=== PATIENT | female | born 1955 | race American Indian/Alaskan Native ===

== ENCOUNTER 2020-07-16 21:24 | Emergency (ER) | payer BC, OTHER ==
[2020-07-16] MEDS ORDERED: ASPIRIN 325 MG TAB PO ONE (21:33)
[2020-07-16 21:42] VITALS: BP 170/92
[2020-07-16 22:01] LABS: Basophils % (Auto) 0.2 % (0.0-1.8); Eosinophils # (Auto) 0.2 K/mm3 (0.0-0.4); Eosinophils % (Auto) 2.5 % (0.0-4.3); Hematocrit 39.6 % (30.3-42.9); Hemoglobin 13.1 gm/dl (10.1-14.3); Lymphocytes # (Auto) 2.2 K/mm3 (1.2-5.4); Lymphocytes % (Auto) 29.6 % (13.4-35.0); Mean Corpuscular HGB Conc 33 % (30-34); Mean Corpuscular Volume 95 fl (79-97); Monocytes # (Auto) 0.8 K/mm3 (0.0-0.8); Platelet Count 176 K/mm3 (140-440); Red Blood Count 4.18 M/mm3 (3.65-5.03); Red Cell Distribution Width 14.2 % (13.2-15.2)
[2020-07-16 22:11] LABS: BUN/Creatinine Ratio 23; Blood Urea Nitrogen 25 mg/dL (7-17); Calcium 9.3 mg/dL (8.4-10.2); Hemolysis Index 17
--- NOTE | 2020-07-16 22:17 | XRay Report ---
CHEST 2 VIEWS INDICATION / CLINICAL INFORMATION: Chest Pain. COMPARISON: 12/29/2017. FINDINGS: SUPPORT DEVICES: None. HEART / MEDIASTINUM: No significant abnormality. LUNGS / PLEURA: No significant pulmonary or pleural abnormality. No pneumothorax. ADDITIONAL FINDINGS: No significant additional findings. IMPRESSION: No acute cardiopulmonary abnormality. Signer Name: Adams Goldsmith MD Signed: 07/16/2020 10:12 PM Workstation Name: [id number]
--- NOTE | 2020-07-18 16:34 | Cat Scan Report ---
CTA CHEST WITH CONTRAST INDICATION / CLINICAL INFORMATION: P.E. PROTOCOL!!! Patient complains of chest pain since this evenin g.. TECHNIQUE: Axial CT images were obtained through the chest after injection of IV contrast. 3 plane ID P and/or 3D reconstructions were produced. All CT scans at this location are performed using CT dose reduction for ALARA by means of automated exposure control. COMPARISON: None available. FINDINGS: PULMONARY ARTERIES: No pulmonary emboli. THORACIC AORTA: No significant abnormality. HEART: Mildly enlarged but no acute abnormality. CORONARY ARTERY CALCIFICATION: Mild. MEDIASTINUM / ELIZABETH: No significant abnormality. PLEURA: No pleural effusion. No pneumothorax. LUNGS: No acute air space or interstitial disease. ADDITIONAL FINDINGS: None. UPPER ABDOMEN: No acute findings. SKELETAL STRUCTURES: No significant osseous abnormality. IMPRESSION: 1. No CT evidence for pulmonary embolism. 2. No acute findings. 3. Mild cardiomegaly. Signer Name: Zoya Castorena MD Signed: 07/17/2020 2:54 AM Workstation Name: [id number]
--- NOTE | 2020-07-19 08:01 | Emergency Department Report ---
ED Chest Pain HPI - General Chief Complaint: Chest Pain Stated Complaint: CHEST PAIN Source: patient Mode of arrival: Ambulatory Limitations: No Limitations - History of Present Illness Initial Comments: This visit occurred during [facility] downtime. Currently dictating electronic medical record from my written notes from visit that occurred on 07/17/2020 70-year-old female, history of hypertension, asthma, hypercholesterolemia, presents with complaint of chest pain. States pain is midsternal, sharp, nonradiating. Onset after cleaning out garage. States pain is intermittent, lasting 10 seconds at a time. She denies shortness of breath, fever, cough, nausea, diaphoresis. Denies any history of CAD or CHF. Ice Cream Vendor: Dr Lisa DURON Complaint: chest pain -: Last night Onset: other (After cleaning a garage) Pain Location: substernal Pain Radiation: none Severity: mild Severity scale (0 -10): 0 Quality: sharp Consistency: intermittent Improves With: nothing Worsens With: nothing re: denies: nausea, vomting, diaphoresis, dyspnea Other Symptoms: denies: cough, fever, leg swelling - Related Data Home Medications Medication Instructions Recorded Confirmed Last Taken Aspirin [Aspirin BABY CHEW TAB] 81 mg PO QDAY 08/04/13 12/30/17 2 Days Ago ~12/28/17 Pantoprazole [Protonix TAB] 40 mg PO BID 08/04/13 12/30/17 2 Days Ago ~12/28/17 Valsartan [Diovan] 40 mg PO BID 08/04/13 12/30/17 2 Days Ago ~12/28/17 Previous Rx's Medication Instructions Recorded Last Taken Type Pantoprazole [Protonix] 40 mg PO BID #60 tablet 12/31/17 Unknown Rx Allergies Allergy/AdvReac Type Severity Reaction Status Date / Time No Known Allergies Allergy Verified 09/05/13 15:31 Heart Score - HEART Score History: Slightly suspicious EKG: Normal Age: 45-65 Risk factors: 1-2 risk factors Troponin: < normal limit HEART Score: 2 ED Review of Systems ROS: Stated complaint: CHEST PAIN Other details as noted in HPI Comment: All other systems reviewed and negative Constitutional: denies: fever Respiratory: denies: shortness of breath Cardiovascular: chest pain, palpitations Gastrointestinal: denies: nausea, vomiting Musculoskeletal: other (Patient reports episode of sharp right leg pain that is currently resolved; denies leg swelling) ED Past Medical Hx - Past Medical History Hx Hypertension: Yes Hx Congestive Heart Failure: No Hx Diabetes: No Hx GERD: Yes Hx Arthritis: Yes Hx Headaches / Migraines: Yes (MIGRAINES) Hx Kidney Stones: Yes Hx Asthma: No Hx COPD: No Additional medical history: reflux - Surgical History Additional Surgical History: Hernia repair, hysterectomy 1999 - Social History Smoking Status: Never Smoker Substance Use Type: None - Medications Home Medications: Home Medications Medication Instructions Recorded Confirmed Last Taken Type Aspirin [Aspirin BABY CHEW TAB] 81 mg PO QDAY 08/04/13 12/30/17 2 Days Ago History ~12/28/17 Pantoprazole [Protonix TAB] 40 mg PO BID 08/04/13 12/30/17 2 Days Ago History ~12/28/17 Valsartan [Diovan] 40 mg PO BID 08/04/13 12/30/17 2 Days Ago History ~12/28/17 Pantoprazole [Protonix] 40 mg PO BID #60 tablet 12/31/17 Unknown Rx ED Physical Exam - General Limitations: No Limitations General appearance: alert, in no apparent distress - Head Head exam: Present: atraumatic, normocephalic - Eye Eye exam: Present: normal appearance, EOMI - ENT ENT exam: Present: mucous membranes moist - Neck Neck exam: Present: normal inspection - Respiratory Respiratory exam: Present: normal lung sounds bilaterally. Absent: respiratory distress - Cardiovascular Cardiovascular Exam: Present: regular rate, normal rhythm - GI/Abdominal GI/Abdominal exam: Present: soft. Absent: distended, tenderness - Extremities Exam Extremities exam: Present: normal inspection. Absent: pedal edema, calf tenderness - Neurological Exam Neurological exam: Present: alert, oriented X3 - Psychiatric Psychiatric exam: Present: normal affect, normal mood - Skin Skin exam: Present: warm, dry, intact, normal color ED Course Vital Signs 07/16/20 21:41 Temperature 98.1 F Pulse Rate 62 Respiratory 20 Rate Blood Pressure 170/92 O2 Sat by Pulse 98 Oximetry ED Medical Decision Making - Lab Data Result diagrams: 07/16/20 21:35 07/16/20 21:35 - EKG Data -: EKG Interpreted by Mt EKG shows normal: sinus rhythm, axis, intervals, QRS complexes, ST-T waves Rate: normal - EKG Data Interpretation: no acute changes - Radiology Data Radiology results: report reviewed, image reviewed - Medical Decision Making 65-year-old female with sharp, intermittent chest pain. EKG unremarkable. Troponin negative x2. CTA obtained secondary to elevated D-dimer. CTA is negat charla. - Differential Diagnosis ACS, PE Critical care attestation.: If time is entered above; I have spent that time in minutes in the direct care of this critically ill patient, excluding procedure time. ED Disposition Clinical Impression: Chest pain Disposition: DC-01 TO HOME OR SELFCARE Is pt being admited?: No Condition: Stable Instructions: Chest Pain (ED) Referrals: NATALI SOTO JR, MD [Primary Care Provider] - 3-5 Days
== END 2020-07-17 03:50 | disposition home or self-care (01) ==
LOC: ED 21:24
DX: R07.89 Other chest pain (principal); I10 Essential (primary) hypertension; G43.909 Migraine, unspecified, not intractable, without status migrainosus; Z90.710 Acquired absence of both cervix and uterus; Z79.899 Other long term (current) drug therapy; Z98.890 Other specified postprocedural states
CPT/HCPCS: 36415; 71046; 71275; 80048; 84484; 85025; 93005; 99284; Q9967

== ENCOUNTER 2020-09-04 10:21 | Outpatient (CLI) | payer OTHER ==
--- NOTE | 2020-09-04 12:11 | Ultrasound Report ---
US abdomen complete INDICATION: EPIGASTRIC PAIN/ FUNCTIONAL DYSPEPSIA COMPARISON: None. FINDINGS: Pancreas: No significant abnormality.. Abdominal aorta: Normal. IVC: Normal. Liver: No significant abnormality. Gallbladder: No significant abnormality. Bile ducts: Normal. The common bile duct measures 4 mm. Kidneys: Normal. Spleen: Normal. There is no free fluid in the abdomen. IMPRESSION: No significant sonographic abnormality of the abdomen. Signer Name: Antony Campbell MD Signed: 09/04/2020 12:06 PM Workstation Name: [id number]
== END 2020-09-04 10:22 | disposition home or self-care (01) ==
LOC: SPVWC 10:21
PROVIDERS: ATTEND Internal Medicine Gastroenterology
DX: K30 Functional dyspepsia (principal)
CPT/HCPCS: 76700

== ENCOUNTER 2021-08-03 10:32 | Emergency (ER) | payer MEDICARE, OTHER ==
[2021-08-03 10:38] VITALS: BP 148/92
--- NOTE | 2021-08-03 11:16 | Emergency Department Report ---
ED Abdominal Pain HPI - General Chief Complaint: Abdominal Pain Stated Complaint: RT SIDE PAIN IN LOWER ABDOMIN Time Seen by Provider: 08/03/21 11:01 Source: patient Mode of arrival: Ambulatory Limitations: No Limitations - History of Present Illness Initial Comments: Patient presents with a couple of day history of intermittent sharp and stabbing right pelvic pain. She states that the pain hits her and last anywhere from seconds to 10 minutes or so. It hit her twice today. The last time this occurred was while she was shopping at [employer]. She came here to be evaluated. Pain has since subsided. Again, this is a sharp and stabbing pain. It occurs in the right pelvic area. It seems to stay in that location. It does not radiate or migrate. He has no back pain associated with this. When it hits, she states that it almost doubles her over. Today, she put pressure in that area with her hand and that alleviated her symptoms somewhat. By the time she arrived here, the pain had resolved. She is never had pain like this before otherwise. There is no recent travel or trauma. She has no cough or congestion. There is no vomiting or diarrhea. She has no dysuria or frequency. - Related Data Home Medications Medication Instructions Recorded Confirmed Last Taken Aspirin [Aspirin BABY CHEW TAB] 81 mg PO QDAY 08/04/13 12/30/17 2 Days Ago ~12/28/17 Pantoprazole [Protonix TAB] 40 mg PO BID 08/04/13 12/30/17 2 Days Ago ~12/28/17 Valsartan [Diovan] 40 mg PO BID 08/04/13 12/30/17 2 Days Ago ~12/28/17 Previous Rx's Medication Instructions Recorded Last Taken Type Pantoprazole [Protonix] 40 mg PO BID #60 tablet 12/31/17 Unknown Rx Dicyclomine [Bentyl] 20 mg PO QID PRN #20 tablet 08/03/21 Unknown Rx Allergies Allergy/AdvReac Type Severity Reaction Status Date / Time No Known Allergies Allergy Verified 09/05/13 15:31 ED Review of Systems ROS: Stated complaint: RT SIDE PAIN IN LOWER ABDOMIN Other details as noted in HPI Comment: All other systems reviewed and negative Constitutional: denies: fever Eyes: denies: eye pain ENT: denies: throat pain Respiratory: denies: cough Cardiovascular: denies: chest pain Endocrine: denies: unexplained weight loss Gastrointestinal: as per HPI Genitourinary: denies: dysuria Musculoskeletal: denies: back pain Skin: denies: rash Neurological: denies: headache Hematological/Lymphatic: denies: easy bruising ED Past Medical Hx - Past Medical History Previous Medical History?: Yes Hx Hypertension: Yes Hx Congestive Heart Failure: No Hx Diabetes: No Hx GERD: Yes Hx Renal Disease: Yes ( Kidney stones) Hx Arthritis: Yes Hx Headaches / Migraines: Yes (MIGRAINES) Hx Kidney Stones: Yes Hx Asthma: No Hx COPD: No Additional medical history: reflux - Surgical History Additional Surgical History: Hernia repair, hysterectomy 1999 - Family History Family history: hypertension - Social History Smoking Status: Never Smoker Substance Use Type: None - Medications Home Medications: Home Medications Medication Instructions Recorded Confirmed Last Taken Type Aspirin [Aspirin BABY CHEW TAB] 81 mg PO QDAY 08/04/13 12/30/17 2 Days Ago History ~12/28/17 Pantoprazole [Protonix TAB] 40 mg PO BID 08/04/13 12/30/17 2 Days Ago History ~12/28/17 Valsartan [Diovan] 40 mg PO BID 08/04/13 12/30/17 2 Days Ago History ~12/28/17 Pantoprazole [Protonix] 40 mg PO BID #60 tablet 12/31/17 Unknown Rx Dicyclomine [Bentyl] 20 mg PO QID PRN #20 tablet 08/03/21 Unknown Rx ED Physical Exam - General Limitations: No Limitations, Other ( pulse ox noted and normal) General appearance: alert, in no apparent distress - Head Head exam: Present: atraumatic, normocephalic - Eye Eye exam: Present: normal appearance, EOMI. Absent: scleral icterus - ENT ENT exam: Present: normal exam, normal orophraynx, normal external ear exam - Neck Neck exam: Present: normal inspection. Absent: meningismus - Respiratory Respiratory exam: Present: normal lung sounds bilaterally. Absent: respiratory distress - Cardiovascular Cardiovascular Exam: Present: regular rate, normal rhythm - GI/Abdominal GI/Abdominal exam: Present: soft. Absent: tenderness, guarding, rebound - Extremities Exam Extremities exam: Present: normal capillary refill - Back Exam Back exam: Absent: CVA tenderness (R), CVA tenderness (L) - Neurological Exam Neurological exam: Present: alert, oriented X3, CN II-XII intact, normal gait. Absent: motor sensory deficit - Psychiatric Psychiatric exam: Present: normal affect, normal mood - Skin Skin exam: Present: warm, dry ED Course Vital Signs 08/03/21 10:36 Temperature 98.5 F Pulse Rate 60 Respiratory 18 Rate Blood Pressure 148/92 O2 Sat by Pulse 100 Oximetry - Reevaluation(s) Reevaluation #1: 08/03/21 11:15 IV and labs ordered. Old records reviewed. Reevaluation #2: 08/03/21 12:34 Labs, including UA, have been reviewed. There is no evidence of acute infectious pathology. Patient was discharged. ED Medical Decision Making - Lab Data Result diagrams: 08/03/21 Unknown 08/03/21 Unknown - Medical Decision Making Patient presented with sharp and stabbing intermittent right pelvic pain. Etiology for this is unknown. This truly does not seem to be persistent and colicky concerning for ovarian torsion. I am not concerned for ectopic preg lynette given her age. There is no right lower quadrant tenderness to suggest appendicitis. She has no rebound or guarding. There was no flank pain or hematuria suggestive of ureterolithiasis. She certainly does not have evidence of urinary tract infection or pyelonephritis. Patient was treated s ymptomatically and referred to her PCP for recheck. I do not believe emergent imaging is indicated given the fact that she has a completely benign abdomen and has no peritoneal finding. Critical Care Time: No Critical care attestation.: If time is entered above; I have spent that time in minutes in the direct care of this critically ill patient, excluding procedure time. ED Disposition Clinical Impression: Right lower quadrant abdominal pain Disposition: 01 HOME / SELF CARE / HOMELESS Is pt being admited?: No Condition: Stable Instructions: Abdominal Pain (ED), Abdominal Pain, Adult, [id number], Pain Without a Known Cause Additional Instructions: Drink plenty of water. Return for problems. Use Tylenol for pain. Follow-up with your regular doctor for recheck and further evaluation. Prescriptions: Dicyclomine [Bentyl] 20 mg PO QID PRN #20 tablet PRN Reason: pain Referrals: PRIMARY CAREMD [Referring] - 3-5 Days LESLIE SHARP MD [Staff Physician] - 3-5 Days
[2021-08-03 11:34] LABS: Basophils % (Auto) 0.6 % (0.0-1.8); Eosinophils # (Auto) 0.2 K/mm3 (0.0-0.4); Eosinophils % (Auto) 2.8 % (0.0-4.3); Hematocrit 40.8 % (30.3-42.9); Lymphocytes # (Auto) 1.9 K/mm3 (1.2-5.4); Lymphocytes % (Auto) 31.8 % (13.4-35.0); Mean Corpuscular HGB Conc 32 % (30-34); Mean Corpuscular Volume 93 fl (79-97); Monocytes # (Auto) 0.6 K/mm3 (0.0-0.8); Monocytes % (Auto) 10.1 % (0.0-7.3); Platelet Count 191 K/mm3 (140-440); Red Blood Count 4.38 M/mm3 (3.65-5.03); Red Cell Distribution Width 14.5 % (13.2-15.2)
[2021-08-03 11:54] LABS: BUN/Creatinine Ratio 21; Blood Urea Nitrogen 21 mg/dL (7-17); Calcium 9.1 mg/dL (8.4-10.2); Hemolysis Index 106
[2021-08-03 12:20] LABS: Bacteria,Urine 1+ /HPF (Negative); Bilirubin,Urine NEG (Negative); Blood,Urine MOD (Negative); Color,Urine Yellow (Yellow); Mucus,Urine FEW /HPF; Protein,Urine <15 mg/dL mg/dL (Negative); Urobilinogen,Urine < 2.0 mg/dL (<2.0)
== END 2021-08-03 13:12 | disposition home or self-care (01) ==
LOC: ED 10:32
DX: R10.31 Right lower quadrant pain (principal); I10 Essential (primary) hypertension
CPT/HCPCS: 36415; 80048; 81001; 85025; 99283